=== PATIENT | male | born 1950 | race Caucasian/White ===

== ENCOUNTER → 2017-11-06 | Outpatient (CLI) | payer MEDICARE, OTHER ==
[~2017-11-06] VITALS: Ht 175.3 cm; Wt 93.0 kg
[2017-11-06] VITALS (9 sets, daily range): BP systolic 138–170; BP diastolic 65–86
[~2017-11-06] MED LIST: AMARYL1 MG PO; ASPIR 8181 M1 PO; GLIPIZIDE 10 MG10 MG PO; GLUCOPHAGE1000 MG PO; KEFLEX500 MG PO; LISINOPRIL10 MG PO; NOHOMEMEDICATIONS; NORCO 5-325 TA1 EACH PO; TOBRAMYCIN SULFA5 ML OPHTHALMIC
[2017-11-06 11:11] LABS: HEMATOCRIT 44.5 % (42.0-52.0); HEMOGLOBIN 14.5 gm/dL (14.0-18.0); MCH 28.4 pg (26.0-34.0); MCHC 32.6 g/dL (28.0-37.0); MCV 87.1 fL (80.0-100.0); MPV 9.2 fl. (7.2-11.1); RBC 5.11 mil/uL (4.50-6.00); RDW-CV 14.2 % (10.5-14.5); WBC 8.2 thou/uL (4.0-11.0)
[2017-11-06 11:20] LABS: APTT 27.6 Seconds (25.0-31.3)
[2017-11-06 11:21] LABS: ANION GAP 7 mmol/L (7-16); BUN 23 mg/dL (7-18); CALCIUM 9.1 mg/dL (8.5-10.1); CHLORIDE 103 mmol/L (98-107); CO2 31 mmol/L (21-32); CREATININE 1.3 mg/dL (0.6-1.3); GLUCOSE 240 mg/dL (70-99); POTASSIUM 4.1 mmol/L (3.5-5.1); SODIUM 141 mmol/L (136-145)
[2017-11-06 11:26] LABS: ALBUMIN 3.9 g/dL (3.4-5.0); ALKALINE PHOSPHATASE 69 U/L (46-116); CHOLESTEROL 212 mg/dL (<200); HDL CHOLESTEROL 41 mg/dL (>40); LDL CHOLESTEROL 137 mg/dL (<100); SGOT 17 U/L (15-37); SGPT 40 U/L (30-65); TC:HDL 5.2 Ratio (Not establshd); TOTAL BILIRUBIN 0.2 mg/dL (<0.1-1.0); TOTAL PROTEIN 7.8 g/dL (6.4-8.2); TRIGLYCERIDE 174 mg/dL (<150); VLDL 35 mg/dL (<40)
[2017-11-06 11:27] LABS: SERUM ASSESSMENT Clear
--- NOTE | 2017-11-07 12:43 | CARD ---
[address] [address] CARDIAC CATH REPORT Name: KAIDEN YANES Sander [id number] Admission: 11/06/17 Attend Phys: Aman Velazquez MD, Discharge: Date of : 52 Report #: [id number] THIS REPORT FOR: //name// APPROVED REPORT Study performed: 11/06/2017 15:24:06 Patient Details Patient Status: Out-Patient Room #: The patient is a 67 year-old male Event Personnel Aman Velazquez Salvage Machine Operator, Shy Neal RTR Monitor, Marc Hills (Eddie) Ector Cadena Makenzie RN category director Performed Art Access - R femoral artery* Left Heart Cath w/LT VGram [id number] LHCLV Hemostasis w/ Mynx Indication Unstable angina Risk Factors Family History, Hypercholesterolemia Procedure Narrative The patient was brought electively to the Cardiac Catheterization Laboratory and was prepped and draped in a sterile manner. The right femoral was infiltrated with 1% Lidocaine subcutaneous anesthesia. A [place] 6 FR sheath was inserted into the right femoral artery. Coronary angiography was performed using coronary diagnostic catheters. The right coronary system was accessed and visualized with a 6FR 3DRC catheter. The left coronary system was accessed and visualized with a 6FR JL4 catheter. The left ventricle was accessed and visualized with a 6FR Pigtail catheter. Left ventricular/Aortic Valve gradient assessed via catheter pullback. Left ventriculogram was performed in FIELDS projection. Pre-demployment femoral angiogram was performed . Closure device was deployed with a 6 Fr Mynx. The patient tolerated the procedure well and there were no complications associated with the procedure. Intraoperative Conscious Sedation Sedation start time: 1601 Case end Time: 1622 [place] [address] CARDIAC CATH REPORT Name: KAIDEN YANES Room: [facility]#: [id number] Admission: 11/06/17 Attend Phys: Aman Velazquez MD, Discharge: Date of : 52 Report #: [id number] Fentanyl 50 mcg Versed 2 mg Fluoro Time: 3.3 minutes Dose: DAP 53304 cGycm2 1289.8 mGy Contrast Type and Amount: Visipaque 200 ml Coronary Angiography The patient's coronary anatomy is right dominant. Diagnostic Cath Left Main 50% distal narrowing LAD Percent proximal narrowing with 90% mid LAD stenosis and diffuse 50% distal LAD narrowing Diagonal 1 60% proximal narrowing Diagonal 2 60% proximal narrowing Circumflex 90% proximal and 80% distal circumflex narrowing, this being a nondominant vessel OM1 40% proximal narrowing Right Coronary Dominant vessel with 90% proximal 80% mid and 70% distal narrowing with 50% narrowing of the proximal portion of the posterolateral branch of the distal right coronary artery Left Ventriculography The left ventricular ejection fraction is estimated to be 60%. Left ventricular wall motion abnormalities are not present. Hemodynamics The aortic pressure is 128/60 mmHg with a mean of 84 mmHg. The left ventricular pressure is 142/8 mmHg with a mean of mmHg. The left ventricular end diastolic pressure is 12 mmHg. There was no gradient across the aortic valve upon pullback. Conclusion #1 significant coronary artery disease characterized by the following: A 50% distal left main coronary artery narrowing, B 30% proximal LAD stenosis with 90% calcified mid LAD stenosis and 60% narrowing of the first and second diagonal branches, C non- dominant circumflex with 90% mid and 80% distal narrowing with 40% first marginal narrowing D dominant right coronary artery with 90% proximal and 80% [place] [address] CARDIAC CATH REPORT Name: KAIDEN YANES Room: [facility]#: [id number] Admission: 11/06/17 Attend Phys: Aman Velazquez MD, Discharge: Date of : 52 Report #: [id number] 70% distal narrowing with 50% narrowing of the proximal portion of the posterolateral branch of the distal dominant right coronary artery #2 normal left ventricular systolic function, estimated ejection fraction being 60% #3 normal left-sided hemodynamics study Recommendations Aggressive Medical Therapy CABG <ELECTRONICALLY SIGNED> By: Aman Velazquez MD, [facility] 11/07/17 1243 1243 1243Aman Velazquez MD, FACC /INF
--- NOTE | 2017-11-07 17:24 | EKG ---
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
== END | disposition home or self-care (01) ==
LOC: M.CL 10:38
PROVIDERS: Internal Medicine
DX: I25.10 Atherosclerotic heart disease of native coronary artery without angina pectoris (principal); I25.84 Coronary atherosclerosis due to calcified coronary lesion; E11.9 Type 2 diabetes mellitus without complications; E78.00 Pure hypercholesterolemia, unspecified; Z98.890 Other specified postprocedural states; Z87.442 Personal history of urinary calculi; Z79.82 Long term (current) use of aspirin; Z79.899 Other long term (current) drug therapy; Z82.49 Family history of ischemic heart disease and other diseases of the circulatory system; Z79.01 Long term (current) use of anticoagulants

== ENCOUNTER → 2018-05-31 | Outpatient (CLI) | payer MEDICARE, OTHER ==
--- NOTE | 2018-05-31 15:08 | 2DMMODE ---
[place] [address] 2 D/M-MODE ECHOCARDIOGRAM Name: KAIDEN YANES Room: [facility]#: [id number] Admission: 05/31/18 Attend Phys: Lawrence Obrien, Discharge: Date of : 52 Date of Service: 05/31/18 1508 Report #: [id number] THIS REPORT FOR: //name// APPROVED REPORT Study performed: 05/31/2018 12:27:15 EXAM: Comprehensive 2D, Doppler, and color-flow Echocardiogram Patient Location: Out-Patient Status: routine BSA: 2.06 HR: 68 bpm BP: 128/60 mmHg Other Information Study Quality: Good Indications CAD 2D Dimensions IVSd: 13.36 (7-11mm) LVOT Diam: 20.10 (18-24mm) LVDd: 40.04 mm PWd: 12.84 (7-11mm) Ascending Ao: 31.47 (22-36mm) LVDs: 24.49 (25-40mm) Aortic Root: 31.68 mm Volumes Left Atrial Volume (Systole) LA ESV Index: 22.10 mL/m2 Aortic Valve AoV Peak Pritesh.: 1.59 m/s AO Peak Gr.: 10.10 mmHg LVOT Max P.75 mmHg AO Mean Gr.: 5.90 mmHg LVOT Mean P.33 mmHg LVOT Max V: 0.83 m/s AO V2 VTI: 30.36 cm LVOT Mean V: 0.53 m/s FLACO (VTI): 1.72 cm2 LVOT V1 VTI: 16.51 cm Mitral Valve E/A Ratio: 0.91 MV Decel. Time: 203.05 ms MV E Max Pritesh.: 0.64 m/s MV PHT: 58.88 [place] [address] 2 D/M-MODE ECHOCARDIOGRAM Name: KAIDEN YANES Room: [facility]#: [id number] Admission: 05/31/18 Attend Phys: Lawrence Obrien, Discharge: Date of : 52 Date of Service: 05/31/18 1508 Report #: [id number] MVA (PHT): 3.74 cm2 TDI E/Lateral E': 8.00 E/Medial E': 9.14 Medial E' Pritesh.: 0.07 m/s Lateral E' Pritesh.: 0.08 m/s Pulmonary Valve PV Peak Rpitesh.: 0.88 m/s PV Peak Gr.: 3.12 mmHg Tricuspid Valve RAP Estimate: 5.00 mmHg TR Peak Gr.: 16.47 mmHg RVSP: 21.47 mmHg PA Pressure: 21.47 mmHg Left Ventricle The left ventricle is normal size. There is normal LV segmental wall motion. Mild concentric left ventricular hypertrophy. Left ventricular systolic function is normal. The left ventricular ejection fraction is within the normal range. LVEF is 55%. Grade I - abnormal relaxation pattern. Right Ventricle The right ventricle is normal size. The right ventricular systolic function is normal. Atria The left atrium size is normal. The right atrium size is normal. Aortic Valve Aortic valve is mildly calcified. No aortic regurgitation is present. There is no aortic valvular stenosis. Mitral Valve Mild mitral annular calcification. There is no mitral valve regurgitation noted. No evidence of mitral valve stenosis. Tricuspid Valve The tricuspid valve is normal in structure. Mild tricuspid regurgitation. Pulmonic Valve The pulmonary valve is normal in structure. There is no pulmonic [place] [address] 2 D/M-MODE ECHOCARDIOGRAM Name: KAIDEN YANES Room: [facility]#: [id number] Admission: 05/31/18 Attend Phys: Lawrence Obrien, Discharge: Date of : 52 Date of Service: 05/31/18 1508 Report #: [id number] Great Vessels The aortic root is normal in size. IVC is normal in size and collapses >50% with inspiration. Pericardium There is no pericardial effusion. <Conclusion> The left ventricle is normal size. Mild concentric left ventricular hypertrophy. Left ventricular systolic function is normal. The left ventricular ejection fraction is within the normal range. LVEF is 55%. Grade I - abnormal relaxation pattern. The right ventricle is normal size. The left atrium size is normal. Aortic valve is mildly calcified. No aortic regurgitation is present. There is no aortic valvular stenosis. Mild mitral annular calcification. There is no mitral valve regurgitation noted. No evidence of mitral valve stenosis. The tricuspid valve is normal in structure. Mild tricuspid regurgitation. IVC is normal in size and collapses >50% with inspiration. There is no pericardial effusion. There is normal LV segmental wall motion. <ELECTRONICALLY SIGNED> By: Aman Velazquez MD, FACC 05/31/18 1508 1508 1508 Aman Velazquez MD, FACC /INF
== END ==
LOC: M.CRD 12:07
DX: I07.1 Rheumatic tricuspid insufficiency (principal); I25.10 Atherosclerotic heart disease of native coronary artery without angina pectoris

== ENCOUNTER 2019-09-29 13:35 | Inpatient (IN) | payer MEDICARE, OTHER ==
[~2019-09-29] VITALS: Ht 172.7 cm; Wt 97.1 kg
[2019-09-29] VITALS (10 sets, daily range): BP systolic 116–174; BP diastolic 59–106
[2019-09-29 14:01] LABS: HEMOGLOBIN 13.4 gm/dL (14.0-18.0); NUCLEATED RBCS 0 /100WBC
[2019-09-29 14:05] LABS: HEMATOCRIT 41.9 % (42.0-52.0); MCH 29.1 pg (26.0-34.0); PLATELET COUNT* 208 thou/uL (150-400); RBC 4.61 mil/uL (4.50-6.00); RDW-CV 15.6 % (10.5-14.5); WBC 10.3 thou/uL (4.0-11.0)
[2019-09-29 14:07] LABS: CALCIUM 8.5 mg/dL (8.5-10.1); CREATININE 1.9 mg/dL (0.6-1.3)
[2019-09-29 14:19] LABS: ALBUMIN 3.3 g/dL (3.4-5.0); CK-MB MASS 1.7 ng/mL (<0.5-3.6); MAGNESIUM 2.3 mg/dL (1.8-2.4); TOTAL BILIRUBIN 0.3 mg/dL (<0.1-1.0); TOTAL PROTEIN 6.7 g/dL (6.4-8.2)
[2019-09-29 14:20] LABS: APTT 27.1 Seconds (25.0-31.3); INR 1.1
[2019-09-29 14:23] LABS: BE -23.9 mmol/L (-2 to +3); PO2 84.9 mmHg (75.0-100.0)
[2019-09-29 14:26] LABS: BE -16.8 mmol/L (-2 to +3); PO2 VENOUS 45.3 mmHg (35.0-45.0)
[2019-09-29 14:28] LABS: PCO2 58.9 mmHg (35.0-45.0)
[2019-09-29 14:28] LABS: ABSOLUTE BASOPHILS 0.1 thou/uL (0.0-0.2); ABSOLUTE EOSINOPHILS 0.1 thou/uL (0.0-0.7); ABSOLUTE LYMPHOCYTES 7.8 thou/uL (0.8-5.3); ABSOLUTE MONOCYTES 0.7 thou/uL (0.0-1.2); ABSOLUTE NEUTROPHILS 1.5 thou/uL (1.6-8.1); ATYPICAL LYMPHS 30 %
[2019-09-29 14:29] LABS: PLATELET ESTIMATE ADEQUATE
--- NOTE | 2019-09-29 16:00 | NUR ---
PT ARRIVED ON UNIT AT 1525, SEDATED ON VENT, LINES INTACT, LEVOPHED GTT, FENT/VERSED RUNNING. CODE ICE INITIATED 1600, PT GOAL TEMP REACHED 1900. CONSULTS CALLED TO DR MASON AND AROLDO. AND SON UPDATED ON POC AND HYPOTHERMIA PROTOCOL. DR BILLINGSLEY CALLED WITH ELEVATED TROPONIN-ORDERS TO NOT CALL WITH ELEVATED TROPS AND NO HEPARIN GTT NEEDED. ISABELLA COMING INTO TO SEE PT TONIGHT. REPORT GIVEN TO MAGDY NORRIS.
[2019-09-29 16:37] LABS: URINE BILIRUBIN NEGATIVE (Negative); URINE BLOOD 3+ (Negative); URINE CLARITY CLEAR; URINE COLOR YELLOW; URINE GLUCOSE-RANDOM 1+ (Negative); URINE KETONES NEGATIVE (Negative); URINE LEUKOCYTES-REFLEX NEGATIVE (Negative); URINE NITRITE-REFLEX NEGATIVE (Negative); URINE PROTEIN 1+ (Negative); URINE UROBILINOGEN 0.2 E.U./dl (0.2-1.0)
[2019-09-29 16:43] LABS: BACTERIA-REFLEX None Seen /HPF (None Seen); FINE GRANULAR CASTS 0-3 Few /LPF (None Seen); SQUAMOUS 0-3 Few /LPF (0-3); URINE CHLORIDE-RANDOM* 127 mmol/L; URINE POTASSIUM-RANDOM 24.2 mmol/L; URINE RBC >20 Many /HPF (0-2); URINE WBC-REFLEX 0-5 Rare /HPF (0-5)
[2019-09-29 16:44] LABS: CRYSTALS None Seen /LPF (None Seen)
[2019-09-29 16:56] LABS: BE -14.5 mmol/L (-2 to +3); PCO2 42.7 mmHg (35.0-45.0)
[2019-09-29 17:03] LABS: pH 7.135 (7.340-7.450)
--- NOTE | 2019-09-29 18:21 | 2DMMODE ---
[place] [address] 2 D/M-MODE ECHOCARDIOGRAM Name: KAIDEN YANES Sander Room: [address] ADM IN .R.#: [id number] Admission: 09/29/19 Attend Phys: Aram White, Discharge: Date of : 52 Date of Service: 09/29/19 1820 Report #: [id number] THIS REPORT FOR: cc: Maryjane Olsen Maggie M. DO Liston, Michael J. MD [facility] ~ APPROVED REPORT Study performed: 09/29/2019 15:45:30 EXAM: Comprehensive 2D, Doppler, and color-flow Echocardiogram Patient Location: In-Patient Room #: 004 Status: routine HR: 101 bpm BP: 132/78 mmHg Rhythm: NSR Other Information Study Quality: Good Indications Acute UT Left Ventricle The left ventricle is normal size. There is global hypokinesis of the left ventricle. There is normal left ventricular wall thickness. Left ventricular systolic function is moderate to severely decreased. LVEF is 35-40%. Right Ventricle The right ventricle is normal size. The right ventricular systolic function is normal. Atria The left atrium size is normal. The right atrium size is normal. Aortic Valve Mild aortic valve sclerosis. Mitral Valve There is mitral annular calcification. [facility] [address] [place] [address] 2 D/M-MODE ECHOCARDIOGRAM Name: KAIDEN YANES Room: [address] ADM IN M.R.#: [id number] Admission: 09/29/19 Attend Phys: Aram White, Discharge: Date of : 52 Date of Service: 09/29/191819 Report #: [id number] Tricuspid Valve The tricuspid valve is normal in structure. Pulmonic Valve Pulmonic valve is not well visualized. Great Vessels The aortic root is normal in size. Pericardium There is no pericardial effusion. <Conclusion> The left ventricle is normal size. There is normal left ventricular wall thickness. Left ventricular systolic function is moderate to severely decreased. LVEF is 35-40%. There is global hypokinesis of the left ventricle. Mild aortic valve sclerosis. There is mitral annular calcification. <ELECTRONICALLY SIGNED> By: Lawrence Obrien MD, FACC 09/29/191819 19 19 Lawrence Obrien MD, FACC /INF
[2019-09-29 18:41] LABS: ABSOLUTE MONOCYTES 1.5 thou/uL (0.0-1.2); BASOPHILS 0.1 %; EOSINOPHILS 0.1 %; HEMOGLOBIN 13.7 gm/dL (14.0-18.0); LYMPHOCYTES 9.3 %; MCH 28.6 pg (26.0-34.0); MCHC 31.9 g/dL (28.0-37.0); MCV 89.5 fL (80.0-100.0); MONOCYTES 6.9 %; MPV 10.1 fl. (7.2-11.1); NUCLEATED RBCS 0 /100WBC; PLATELET COUNT* 253 thou/uL (150-400); POLYS 83.6 %; RDW-CV 15.1 % (10.5-14.5); WBC 21.5 thou/uL (4.0-11.0)
--- NOTE | 2019-09-29 18:47 | EKG ---
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 : 1950 Requested By: Addison Allen Order Number: [id number] MD: Lawrence Obrien Measurements Intervals [place] Rate: 136 P: 111 [place]: 126 QRS: -23 QRSD: 107 T: 164 QT: 284 QTc: 428 Interpretive Statements Sinus tachycardia LVH with secondary repolarization abnormality Compared to ECG 11/06/2017 13:58:32 Left ventricular hypertrophy now present Early repolarization now present Sinus rhythm no longer present Possible ischemia no longer present Electronically Signed On 09-29-2019 18:46:45 CDT by Lawrence Obrien [email or web address] <ELECTRONICALLY SIGNED> By: Lawrence Obrien MD, FACC 09/29/19 1846 1336 1336 Lawrence Obrien MD, FACC /EPI
[2019-09-29 18:51] LABS: APTT 25.7 Seconds (25.0-31.3); INR 1.1; PROTIME 11.4 Seconds (9.20-11.50)
[2019-09-29 19:01] LABS: CALCIUM 7.4 mg/dL (8.5-10.1); CREATININE 2.2 mg/dL (0.6-1.3); MAGNESIUM 1.8 mg/dL (1.8-2.4); PHOSPHORUS* 6.7 mg/dL (2.5-4.9)
[2019-09-29 19:02] LABS: POTASSIUM 4.3 mmol/L (3.5-5.1)
[2019-09-29 19:15] LABS: BE -14.1 mmol/L (-2 to +3); PCO2 49.4 mmHg (35.0-45.0); PO2 107.1 mmHg (75.0-100.0)
[2019-09-30] VITALS (56 sets, daily range): BP systolic 81–187; BP diastolic 45–75
[2019-09-30 00:33] LABS: ABSOLUTE LYMPHOCYTES 0.4 thou/uL (0.8-5.3); ABSOLUTE MONOCYTES 0.7 thou/uL (0.0-1.2); ABSOLUTE NEUTROPHILS 14.6 thou/uL (1.6-8.1); BASOPHILS 0.1 %; HEMATOCRIT 42.3 % (42.0-52.0); HEMOGLOBIN 14.1 gm/dL (14.0-18.0); LYMPHOCYTES 2.4 %; MCH 28.9 pg (26.0-34.0); MCHC 33.3 g/dL (28.0-37.0); MCV 86.7 fL (80.0-100.0); MONOCYTES 4.4 %; MPV 9.2 fl. (7.2-11.1); NUCLEATED RBCS 0 /100WBC; PLATELET COUNT* 199 thou/uL (150-400); POLYS 93.1 %; RBC 4.88 mil/uL (4.50-6.00); RDW-CV 14.6 % (10.5-14.5); WBC 15.7 thou/uL (4.0-11.0)
[2019-09-30 00:56] LABS: ANION GAP 13 mmol/L (7-16); BUN 43 mg/dL (7-18); CALCIUM 7.4 mg/dL (8.5-10.1); CHLORIDE 108 mmol/L (98-107); CHOLESTEROL 150 mg/dL (<200); CK-MB MASS 103.8 ng/mL (<0.5-3.6); CO2 24 mmol/L (21-32); CREATININE 2.5 mg/dL (0.6-1.3); GLUCOSE 231 mg/dL (70-99); HDL CHOLESTEROL 42 mg/dL (>40); LDL CHOLESTEROL 92 mg/dL (<100); MAGNESIUM 1.8 mg/dL (1.8-2.4); NT-PRO BRAIN NAT PEPTIDE 2744 pg/mL (<300); PHOSPHORUS* 3.7 mg/dL (2.5-4.9); POTASSIUM 3.9 mmol/L (3.5-5.1); SODIUM 145 mmol/L (136-145); TC:HDL 3.6 Ratio (Not establshd); TRIGLYCERIDE 82 mg/dL (<150); VLDL 16 mg/dL (<40)
[2019-09-30 01:02] LABS: SERUM ASSESSMENT CLEAR; TROPONIN-I LEVEL 12.12 ng/mL (<0.06)
[2019-09-30 01:13] LABS: BE -9.1 mmol/L (-2 to +3)
--- NOTE | 2019-09-30 04:30 | NUR ---
insulin gtt turned off at this time
--- NOTE | 2019-09-30 05:17 | NUR ---
PT. REMAINS COOL, REWARMING TO START AT 1600. BP REMAINS WITH A MAP > 65, WITHOUT PRESSORS. PT. HAS OPENED HIS EYES TO STIMULI. VECURONIUM IV PUSHES GIVEN PRN PER SHIVERING. CVP LOW, CONCERN OF VOLUME OVERLOAD SO IVF DC'D AND NO BOLUS GIVEN PER DR. MASON. SINUS RHYTHM WITH PACS AND PVCS MAJORITY OF SHIFT. PT'S UPDATED ON PT'S STATUS. WILL CONTINUE TO MONITOR.
[2019-09-30 05:46] LABS: BE -6.8 mmol/L (-2 to +3); PCO2 46.6 mmHg (35.0-45.0)
[2019-09-30 05:48] LABS: PO2 137.5 mmHg (75.0-100.0); pH 7.257 (7.340-7.450)
[2019-09-30 06:23] LABS: ABSOLUTE LYMPHOCYTES 0.3 thou/uL (0.8-5.3); BASOPHILS 0.1 %; HEMATOCRIT 41.9 % (42.0-52.0); HEMOGLOBIN 13.6 gm/dL (14.0-18.0); LYMPHOCYTES 2.2 %; MCH 28.1 pg (26.0-34.0); MCHC 32.4 g/dL (28.0-37.0); MCV 86.8 fL (80.0-100.0); MONOCYTES 6.9 %; MPV 9.3 fl. (7.2-11.1); NUCLEATED RBCS 0 /100WBC; PLATELET COUNT* 181 thou/uL (150-400); POLYS 90.8 %; RBC 4.83 mil/uL (4.50-6.00); RDW-CV 14.8 % (10.5-14.5); WBC 14.3 thou/uL (4.0-11.0)
[2019-09-30 06:46] LABS: CALCIUM 7.7 mg/dL (8.5-10.1); CK-MB MASS 139.1 ng/mL (<0.5-3.6); CREATININE 2.3 mg/dL (0.6-1.3); MAGNESIUM 1.8 mg/dL (1.8-2.4); PHOSPHORUS* 3.8 mg/dL (2.5-4.9); POTASSIUM 4.2 mmol/L (3.5-5.1)
[2019-09-30 06:47] LABS: TROPONIN-I LEVEL 20.02 ng/mL (<0.06)
[2019-09-30 06:56] LABS: APTT 28.1 Seconds (25.0-31.3); INR 1.1; PROTIME 11.6 Seconds (9.20-11.50)
--- NOTE | 2019-09-30 12:10 | NUR ---
ICU rounds: On vent. Code ice, start rewarming at 4pm today. CM spoke with and kids in waiting room. Pt is normally active and independent, Pt was at the gym when this event happened. Pt works out 5 days/week. Hx of open heart surgery and diabetes. No DME. No hx of HH or SNF. Family hopeful that Pt will be able to return at dc, CM provided contacted info to family. Following.
--- NOTE | 2019-09-30 14:01 | NUR ---
Nutrition: Screen for Juan Antonio score of 9. Pt code ice, will sart rewarming at 1600, per notes. Defer nutrition needs until after rewarmed. Will follow up [place] 10/03/19.
--- NOTE | 2019-09-30 15:03 | NUR ---
PATIENT REMAINS ON VENT SEDATED LEVOPHED USED DO TO NEED FOR PROPOFOL TO INCREASE SEDATION. vECURONIIUM USED PRN. FAMILYAT BEDSIDE INFORMED OF TX AND PT CONDITION, PROGRESSING SLOWLY.
--- NOTE | 2019-09-30 16:31 | NUR ---
PATIENT NOW STARTING WARMING PROCESS. FAMILY AT BEDSIDE.
--- NOTE | 2019-09-30 17:46 | CON ---
[address] [address] CONSULTATION Name: KAIDEN YANES Sander Room: [address] IN M.R.#: [id number] Admission: 09/29/19 Attend Phys: Aram White MD Discharge: Date of : 52 Report #: [id number] THIS REPORT FOR: //name// cc: Maryjane Olsen Maggie M. DO ~ THIS REPORT FOR: //name// CC: Aram Bravo Camille DATE OF SERVICE: 09/29/2019 CONSULTING PHYSICIAN: Aram White MD REASON FOR CONSULTATION: Acute kidney injury. HISTORY OF PRESENT ILLNESS: A 69-year-old gentleman who was at the gym and had a sudden syncopal event, was unresponsive. CPR was initiated. It sounds like he was shocked several times and came out of the ventricular arrhythmia. He is intubated. He is currently on Levophed 5 mcg. He was very acidotic initially with a pH of just less than 7 and a lactic acid of 10. He was given Lasix for some pulmonary edema noted on chest x-ray and transferred to the ICU. He has a Edward catheter in place, he is making urine and is on 5 mcg of Levophed at present time. REVIEW OF SYSTEMS: Constitutional, psych, heme, eyes, ENT, respiratory, cardiac, GI, , endocrine, all negative except as documented above. PAST MEDICAL HISTORY: Coronary artery disease, CABG; history of diabetes; carotid disease with previous surgery. CURRENT MEDICATIONS: Reviewed. SOCIAL HISTORY: No tobacco. FAMILY HISTORY: Not pertinent to current clinical case. PHYSICAL EXAMINATION: VITAL SIGNS: Blood pressure 116/68, pulse 105, respirations 26, temperature 35.8. GENERAL: Intubated and sedated. EYES: Closed. EARS: Externally normal. CARDIOVASCULAR: Tachycardic. LUNGS: [place] [address] CONSULTATION Name: KAIDEN YANES Room: [address]#: [id number] Admission: 09/29/19 Attend Phys: Aram White MD Discharge: Date of : 52 Report #: [id number] ABDOMEN: Soft. GENITOURINARY: Edward catheter in place. MUSCULOSKELETAL: Nontender. PSYCHIATRIC: Intubated and sedated. LABORATORY DATA: The pH 7.14, pCO2 of 43, bicarbonate 14. UA noted. White cell count 10.3, hemoglobin 13.4, platelets 208. Sodium 143, potassium 3, chloride 105, bicarbonate 19, BUN 33, creatinine 1.9, glucose 332, lactic acid 10, calcium 8.5, phosphorus 6, magnesium 2.3, albumin 3.3, lipase 173. ASSESSMENT: 1. Acute kidney injury with an admission creatinine of 1.9. UA is noted. This is in the setting of cardiac arrest and shock. In 10/2017, creatinine was 1.3. 2. Hypokalemia. 3. Respiratory and lactic metabolic acidosis. 4. Cardiac arrest. 5. Coronary artery disease with history of coronary artery bypass graft. 6. Pulmonary edema on chest x-ray. 7. Shock. 8. History of diabetes. PLAN: 1. Lasix was given. He has a Edward catheter in place. He is making good urine. 2. I discussed with ICU nurse and asked for repeat chemistries. Blood gases are being repeated and thus far improving, currently on Levophed. 3. He is on hypothermia protocol and electrolytes will be replaced as needed. Cardiology has been consulted. We will follow along with you. Thirty-five minutes critical care time. Thank you for requesting my opinion in the care and management of this patient. <ELECTRONICALLY SIGNED> By: Reece Duran MD 09/30/19 1746 1710 0108Abijose Duran MD /nt
[2019-09-30 18:32] LABS: ABSOLUTE LYMPHOCYTES 0.6 thou/uL (0.8-5.3); ABSOLUTE NEUTROPHILS 21.9 thou/uL (1.6-8.1); BASOPHILS 0.2 %; HEMATOCRIT 41.3 % (42.0-52.0); HEMOGLOBIN 13.5 gm/dL (14.0-18.0); LYMPHOCYTES 2.7 %; MCH 28.3 pg (26.0-34.0); MCHC 32.7 g/dL (28.0-37.0); MCV 86.6 fL (80.0-100.0); MONOCYTES 4.4 %; MPV 9.5 fl. (7.2-11.1); NUCLEATED RBCS 0 /100WBC; PLATELET COUNT* 212 thou/uL (150-400); POLYS 92.7 %; RBC 4.77 mil/uL (4.50-6.00); RDW-CV 14.8 % (10.5-14.5); WBC 23.6 thou/uL (4.0-11.0)
[2019-09-30 18:50] LABS: APTT 29.6 Seconds (25.0-31.3); INR 1.1; PROTIME 11.4 Seconds (9.20-11.50)
[2019-09-30 18:57] LABS: CALCIUM 7.7 mg/dL (8.5-10.1); CREATININE 2.6 mg/dL (0.6-1.3); MAGNESIUM 1.6 mg/dL (1.8-2.4); PHOSPHORUS* 4.2 mg/dL (2.5-4.9)
[2019-09-30 18:58] LABS: POTASSIUM 5.3 mmol/L (3.5-5.1)
--- NOTE | 2019-09-30 22:29 | NUR ---
RECEIVED REPORT AND ASSUMED CARE AT 1900.VSS. PT ON LEVO/ FENT/PROP GTT. NO S/S OF SHIVERING OR SEIZURES. PT REWARMING, STARTED 1600 09/30/19 PER REPORT. ASSESSMENT COMPLETED CHARTED. BED LOCKED IN LOWEST POSITION.
--- NOTE | 2019-09-30 22:31 | NUR ---
AT 2200 ORAL CARE, PT OPENED EYES, ABLE TO NOD IN "YES" RESPOSE TO QUESTIONS. OPENED AND CLOSED EYES WITH COMMAND AND ABLE TO FOLLOW COMMANDS TO SQUEEZE HANDS BILATERAL WHEN DIRECTED.
[2019-09-30 23:07] LABS: GLYCOHEMOGLOBIN (HGB A1C) 7.2 % (4.8-5.6)
[2019-10-01] VITALS (35 sets, daily range): BP systolic 60–137; BP diastolic 36–74
[2019-10-01 00:23] LABS: HEMATOCRIT 40.1 % (42.0-52.0); HEMOGLOBIN 13.1 gm/dL (14.0-18.0); MCH 28.4 pg (26.0-34.0); MCHC 32.7 g/dL (28.0-37.0); MCV 86.8 fL (80.0-100.0); MPV 9.3 fl. (7.2-11.1); RBC 4.62 mil/uL (4.50-6.00); RDW-CV 14.7 % (10.5-14.5); WBC 24.1 thou/uL (4.0-11.0)
[2019-10-01 00:53] LABS: APTT 29.8 Seconds (25.0-31.3); INR 1.1; PROTIME 11.7 Seconds (9.20-11.50)
[2019-10-01 00:58] LABS: ALBUMIN 3.1 g/dL (3.4-5.0); CALCIUM 7.3 mg/dL (8.5-10.1); CREATININE 2.7 mg/dL (0.6-1.3); MAGNESIUM 1.6 mg/dL (1.8-2.4); POTASSIUM 5.6 mmol/L (3.5-5.1); TOTAL BILIRUBIN 0.3 mg/dL (<0.1-1.0); TOTAL PROTEIN 6.6 g/dL (6.4-8.2)
[2019-10-01 05:51] LABS: BE -5.3 mmol/L (-2 to +3); PCO2 45.4 mmHg (35.0-45.0); PO2 121.3 mmHg (75.0-100.0)
[2019-10-01 05:53] LABS: pH 7.289 (7.340-7.450)
--- NOTE | 2019-10-01 06:54 | NUR ---
TEMP AT 0000 ACHIEVED 97.7 END OF REWARMING/ MAX OF 98.4 THROUGH SHIFT.
[2019-10-01 09:26] LABS: BE -4.7 mmol/L (-2 to +3); PCO2 43.9 mmHg (35.0-45.0); PO2 94.5 mmHg (75.0-100.0); pH 7.308 (7.340-7.450)
--- NOTE | 2019-10-01 10:16 | NUR ---
PT EXTUBATED AT 1010. BIPAP PLACED BY RESP THERAPIST
[2019-10-01 13:06] LABS: CALCIUM 7.6 mg/dL (8.5-10.1); CREATININE 3.2 mg/dL (0.6-1.3)
--- NOTE | 2019-10-01 17:52 | NUR ---
PT A/OX4. CONFUSED AT TIMES ABOUT EVENTS THAT GOT HIM HERE. O2 2L NC. LOPEZ CATHETER REMOVED. REPORTS CHEST PAIN 09/26. DENIES NEED FOR PAIN MEDICATION. UP TO CHAIR TODAY. PROGRESSING WELL TOWARDS GOALS.
--- NOTE | 2019-10-02 03:59 | NUR ---
RECEIVED REPORT AND ASSUMED CARE OF THE PATIENT AT 1900. VSS. FULL ASSESSMENT COMPLETED CHARTED. BED LOCKED AND IN LOW POSITION. PERSONAL ITEMS IN REACH.
[2019-10-02 04:00] VITALS: BP 154/79
[2019-10-02 08:00] VITALS: BP 157/79
[2019-10-02 13:25] VITALS: BP 184/95
--- NOTE | 2019-10-02 17:16 | NUR ---
PATIENT HAVING BURPS NITRO APPLIED. CALLED 30 PLUS BEATS OF WIDE COMPLEX TACHYCARDIA. CALLED TO DR KENDRICK POSSIBLE CATH IN AM FAMILY AWARE. PT STILL SLOW TO RESPOND. UP TO VOID IN COMMODE TO TRANSFER TO RM 215,.
--- NOTE | 2019-10-02 19:55 | NUR ---
TRANSFERED PT TO RM 215 GAVE REPORT TO MYRNA CURRAN. PT DENIES SOA OR DISTRESS.
[2019-10-03] VITALS (7 sets, daily range): BP systolic 154–185; BP diastolic 78–93
[2019-10-03 06:43] LABS: CALCIUM 8.4 mg/dL (8.5-10.1); CREATININE 2.7 mg/dL (0.6-1.3); POTASSIUM 4.6 mmol/L (3.5-5.1)
--- NOTE | 2019-10-03 07:40 | NUR ---
RECEIVED REPORT FROM CECELIA CURRAN AT 1900. PATIENT UP FROM ICU AT THAT TIME. PATIENT HAS RESTED IN BED AND BEEN COMPLIANT WITH TREATMENT. CALLS OUT FOR ASSISTANCE WHEN HE NEEDS TO VOID, TAKES PILLS WITHOUT DIFFICULTY. 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 DATE AND TIME NOT DETERMINED OF YET. NO SIGNIFICANT EVENTS OR COMPLICATIONS THIS SHIFT. NURSING STAFF KALEY
--- NOTE | 2019-10-03 09:10 | EKG ---
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 : 1950 Requested By: Lawrence Obrien Order Number: [id number] Reading MD: Mitul Hollingsworth Measurements Intervals [place] Rate: 108 P: 68 IN: 160 QRS: 2 QRSD: 95 T: 141 QT: 313 QTc: 420 Interpretive Statements Sinus tachycardia Repol abnrm, severe global ischemia (LM/MVD) Compared to ECG 09/29/2019 13:36:11 rat has slowed Left ventricular hypertrophy no longer present Electronically Signed On 10-03-2019 9:08:55 CDT by Mitul Hollingsworth [email or web address] <ELECTRONICALLY SIGNED> By: Mitul Hollingsworth MD, [facility] 10/03/19 0908 0622 1 Mitul Hollingsworth MD, [facility] /EPI
--- NOTE | 2019-10-03 10:50 | NUR ---
Nutrition: reassessment. Pt eating CHO controlled diet. BG 138, albumin 3.1. Wt: 214#. Pt doing much better. Low nutrition risk.
--- NOTE | 2019-10-03 15:29 | NUR ---
ASSUMED CARE OF PT AT 0730. PT RESTING AT EDGE OF BED WAITING FOR BREAKFAST. AND SON AT BEDSIDE AND UPDATED ON CURRENT PLAN OF CARE. TRACING SR ON THE BUSINESS SERVICES ANALYST. ON 2L NC SAT UPPER 90'S. PT DENIES ANY PAIN OR SHORTNESS OF BREATH. PT UP WITH SBA TO BATHROOM. PT GOAL FOR TODAY IS WORK WITH PT AND OT, TITRATE OXYGEN AND CARDIO CONSULT IN PLACE. AM ASSESSMENT CHARTED. MEDICATIONS PER MAR. PT REPOSITIONS SELF. HOURLY ROUNDING OBSERVED. BED IN LOW POSITION. CALL LIGHT WITHIN REACH. WILL CONTNUE PLAN OF CARE.
--- NOTE | 2019-10-03 18:36 | NUR ---
NO ACUTE CHANGES THROUGHOUT SHIFT. REFER TO CHARTING. PT UP TO BATHROOM MULTIPLE TIMES THROUGHOUT SHIFT WITH SBA. FAMILY REMAINED AT BEDSIDE THROUGHOUT SHIFT AND UPDATED ON CURRENT PLAN OF CARE. CONTINUES TO TRACE SR ON THE NEW CAR GET READY MECHANIC. ON 2L NC SAT UPPER 90'S. PT DENIES ANY PAIN THIS AFTERNOON. MEDICATIONS PER SEP. PT REPOSITIONS SELF. HOURLY ROUNDING OBSERVED. BED IN LOW POSITION. CALL LIGHT WITHIN REACH. WILL CONTINUE PLAN OF CARE.
[2019-10-04] VITALS (7 sets, daily range): BP systolic 120–179; BP diastolic 62–94
[2019-10-04 06:18] LABS: CALCIUM 8.4 mg/dL (8.5-10.1); CREATININE 2.5 mg/dL (0.6-1.3); POTASSIUM 4.7 mmol/L (3.5-5.1)
--- NOTE | 2019-10-04 07:53 | NUR ---
Shift uneventful. Pt is aox4, running SR w/ PVCs on telemetry, respirations are even and unlabored on room air. Pt is medically stable at this time.
--- NOTE | 2019-10-04 16:47 | NUR ---
PT UP IN HALLS WITH STEADY GAIT. NSR ON MONITOR. PT DENIES CP OR SOA. TOLERATING PO WELL. PLAN FOR HEART CATH WHEN KIDNEY FUNCTION IMPROVES
[2019-10-05] VITALS: BP 153/81
[2019-10-05 04:00] VITALS: BP 157/78
[2019-10-05 04:14] LABS: ABSOLUTE BASOPHILS 0.1 thou/uL (0.0-0.2); ABSOLUTE EOSINOPHILS 0.6 thou/uL (0.0-0.7); ABSOLUTE LYMPHOCYTES 2.1 thou/uL (0.8-5.3); ABSOLUTE NEUTROPHILS 5.7 thou/uL (1.6-8.1); BASOPHILS 0.9 %; EOSINOPHILS 6.3 %; HEMATOCRIT 35.1 % (42.0-52.0); HEMOGLOBIN 11.9 gm/dL (14.0-18.0); LYMPHOCYTES 22.5 %; MCHC 33.9 g/dL (28.0-37.0); MCV 85.5 fL (80.0-100.0); MONOCYTES 10.2 %; NUCLEATED RBCS 0 /100WBC; PLATELET COUNT* 183 thou/uL (150-400); POLYS 60.1 %; RDW-CV 14.2 % (10.5-14.5); WBC 9.4 thou/uL (4.0-11.0)
[2019-10-05 04:47] LABS: CALCIUM 8.7 mg/dL (8.5-10.1); CREATININE 2.3 mg/dL (0.6-1.3); POTASSIUM 4.1 mmol/L (3.5-5.1)
--- NOTE | 2019-10-05 07:56 | NUR ---
Shift uneventful. Pt is aox4, running SR w/ PACs on telemetry, respirations are even and unlabored on room air. Pt is medically stable at this time.
[2019-10-05 08:00] VITALS: BP 153/76
[2019-10-05 13:04] VITALS: BP 137/70
[2019-10-05 17:21] VITALS: BP 146/70
[2019-10-05 20:00] VITALS: BP 164/78
[2019-10-06 00:09] VITALS: BP 128/62
[2019-10-06 04:04] VITALS: BP 148/65
[2019-10-06 04:36] LABS: ABSOLUTE BASOPHILS 0.1 thou/uL (0.0-0.2); ABSOLUTE EOSINOPHILS 0.5 thou/uL (0.0-0.7); ABSOLUTE LYMPHOCYTES 1.7 thou/uL (0.8-5.3); ABSOLUTE NEUTROPHILS 5.9 thou/uL (1.6-8.1); BASOPHILS 0.7 %; EOSINOPHILS 5.7 %; HEMATOCRIT 34.1 % (42.0-52.0); HEMOGLOBIN 11.7 gm/dL (14.0-18.0); LYMPHOCYTES 18.4 %; MCH 29.4 pg (26.0-34.0); MCHC 34.3 g/dL (28.0-37.0); MCV 85.9 fL (80.0-100.0); MONOCYTES 11.4 %; MPV 9.7 fl. (7.2-11.1); NUCLEATED RBCS 0 /100WBC; PLATELET COUNT* 179 thou/uL (150-400); POLYS 63.8 %; RBC 3.97 mil/uL (4.50-6.00); RDW-CV 14.5 % (10.5-14.5); WBC 9.2 thou/uL (4.0-11.0)
[2019-10-06 04:43] LABS: CALCIUM 8.3 mg/dL (8.5-10.1); CREATININE 2.2 mg/dL (0.6-1.3); POTASSIUM 4.2 mmol/L (3.5-5.1)
--- NOTE | 2019-10-06 06:51 | NUR ---
Shift uneventful. Pt's creat remains elevated at 2.2. Pt is aox4, running SR w/ PACs on telemetry, respirations are even and unlabored on room air. Pt is medically stable at this time.
--- NOTE | 2019-10-06 07:10 | NUR ---
CHANGE OF SHIFT, BEDSIDE REPORT GIVEN PATIENT IN THE SHOWER AT THIS TIME ASSUMED PATIENT CARE
[2019-10-06 07:45] VITALS: BP 169/91
--- NOTE | 2019-10-06 08:14 | NUR ---
THIS P.T. CONSULTED WITH TREATING BLOWER ROOM ATTENDANT FROM LAST TX SESSION. PT HAS DEMONSTRATED FUNCTIONAL INDEPENDENCE AND NO BARRIERS OR SAFETY CONCERNS PRESENTED FOR DC. ALL GOALS HAVE BEEN MET, AND NO FURTHER P.T. NEEDS PRESENTED AT THIS TIME. WILL DC P.T. FUNMI DIORT
[2019-10-06 12:06] VITALS: BP 123/59
[2019-10-06 18:02] VITALS: BP 151/66
[2019-10-06 20:00] VITALS: BP 141/73
--- NOTE | 2019-10-06 20:00 | NUR ---
RECEIVED REPORT AND ASSUMED CARE OF PT, ASSESSMENT COMPLETED. GAIT STEADY AROUND ROOM. DISCUSSED CARDIAC CATH AND NPO STATUS. TELEMETRY ON SHOWING SR. WILL CONT TO MONITOR AND ASSIST NEEDED.
[2019-10-07] VITALS (14 sets, daily range): BP systolic 114–161; BP diastolic 60–79
[2019-10-07 04:18] LABS: ABSOLUTE EOSINOPHILS 0.5 thou/uL (0.0-0.7); ABSOLUTE LYMPHOCYTES 1.5 thou/uL (0.8-5.3); ABSOLUTE MONOCYTES 0.9 thou/uL (0.0-1.2); ABSOLUTE NEUTROPHILS 5.8 thou/uL (1.6-8.1); BASOPHILS 0.5 %; EOSINOPHILS 5.9 %; HEMATOCRIT 34.4 % (42.0-52.0); HEMOGLOBIN 11.7 gm/dL (14.0-18.0); MCH 29.2 pg (26.0-34.0); MCHC 33.9 g/dL (28.0-37.0); MCV 86.2 fL (80.0-100.0); MONOCYTES 10.6 %; MPV 9.8 fl. (7.2-11.1); NUCLEATED RBCS 0 /100WBC; PLATELET COUNT* 179 thou/uL (150-400); RBC 3.99 mil/uL (4.50-6.00); RDW-CV 14.5 % (10.5-14.5); WBC 8.8 thou/uL (4.0-11.0)
[2019-10-07 04:30] LABS: ALBUMIN 3.2 g/dL (3.4-5.0); CALCIUM 8.3 mg/dL (8.5-10.1); CREATININE 2.3 mg/dL (0.6-1.3); POTASSIUM 4.1 mmol/L (3.5-5.1); TOTAL BILIRUBIN 0.4 mg/dL (<0.1-1.0); TOTAL PROTEIN 6.6 g/dL (6.4-8.2)
--- NOTE | 2019-10-07 06:00 | NUR ---
SLEPT WELL TONIGHT. NPO FOR CARDIAC CATH. PT'S CREAT 2.3 THIS AM. EXPLAINED THIS TO PT AND BECAME DEPRESSED. TELEMETRY SHOWING SR. NO CHANGE IN ASSESSMENT. HS GOALS OF REST AND SAFETY ACHIEVED. HOURLY ROUNDING OBSERVED.
--- NOTE | 2019-10-07 13:43 | EKG ---
[place] [address] ELECTROCARDIOGRAM REPORT Name: KAIDEN YANES Room: [address] ADM IN M.R.#: [id number] Admission: 09/29/19 Attend Phys: Aram White, Discharge: Date of : 52 Date of Service: 10/07/19 1301 Report #: [id number] THIS REPORT FOR: //name// [facility] Test Date: 2019-10-07 Test Time: 13:01:41 Pat Name: KAIDEN CHENRIDGE Department: Room: [address] Gender: M Clinical Assoc: JOSAFAT : 1950 Requested By: Mitul Hollingsworth Order Number: [id number] Reading MD: Mitul Hollingsworth Measurements Intervals [place] Rate: 67 P: 8 NH: 146 QRS: 2 QRSD: 100 T: 123 QT: 414 QTc: 437 Interpretive Statements Sinus rhythm Left atrial enlargement LVH with secondary repolarization abnormality Compared to ECG 10/02/2019 06:22:33 Left ventricular hypertrophy now present Sinus tachycardia no longer present Possible ischemia no longer present Electronically Signed On 10-07-2019 13:41:47 CDT by Mitul Hollingsworth [email or web address] <ELECTRONICALLY SIGNED> By: Mitul Hollingsworth MD, FAC 10/07/19 1341 1301 1301 Mitul Hollingsworth MD, FAC /EPI
--- NOTE | 2019-10-07 14:18 | CARD ---
[address] [address] CARDIAC CATH REPORT Name: KAIDEN YANES Room: [address] IN [facility]#: [id number] Admission: 09/29/19 Attend Phys: Aram White MD Discharge: Date of : 52 Report #: [id number] THIS REPORT FOR: //name// cc: Maryjane Olsen Maggie M. DO ~ APPROVED REPORT Study performed: 10/07/2019 08:03:14 Patient Details Patient Status: In-Patient Room #: The patient is a 69 year-old male Event Personnel Mitul Hollingsworth Contact Assembler, Aram Alvarado Monitor, Joanne Ardon RTR Scrub, Arlette Harris RN RN, Michaela Ceballos RN RN, Mitul Hollingsworth Floriculture Teacher Procedures Performed Right femoral artery access, Left Heart Catheterization, CASS SINGLE RPLA, Hemostasis with Angioseal Indication Non-STEMI , Syncope, Cardiomyopathy Risk Factors Hypercholesterolemia, Coronary Artery DiseaseHypertensionRenal Failure, Diabetes Previous Procedures/Diagnoses Previous CABG Admission/Lab Medications/Medications given during procedure Glycoprotein IllbIlla Inhibitors, Heparin Unfract., Heparin IV bolus 9000 units, Aggrastat bolus IV 9 ml, Plavix PO 600 mg Procedure Narrative The patient was brought electively to the Cardiac Catheterization Laboratory and was prepped and draped in a sterile manner. The right femoral was infiltrated with 2% Lidocaine subcutaneous anesthesia. A [place] 6 FR sheath was inserted into the right femoral artery. Coronary angiography was performed using coronary diagnostic catheters. The right coronary system was accessed and visualized with a Diagnostic - JR4 catheter. The left [place] [address] CARDIAC CATH REPORT Name: KAIDEN YANES Room: [address]#: [id number] Admission: 09/29/19 Attend Phys: Aram White MD Discharge: Date of : 52 Report #: [id number] and visualized with a Diagnostic - JL4 catheter. The left ventricle was accessed and visualized with a Diagnostic - JR4 - PRESSURES ONLY catheter. Left ventricular/Aortic Valve gradient assessed via catheter pullback. Pre-demployment femoral angiogram was performed . Closure device was deployed with a 6 Fr Angioseal STS 6Fr. The patient tolerated the procedure well and there were no complications associated with the procedure. There was no hematoma. COVARRUBIAS graft was cannulated with a 6 micronesian COVARRUBIAS catheter. 2 SVG's were cannulated with a 6 fr JR4 catheter. Intraoperative Conscious Sedation Sedation start time: 1059 Case end Time: 1204 Fentanyl 25 mcg Versed 4 mg Fluoro Time: 16.0 minutes Dose: DAP 980170 cGycm2 2777 mGy Contrast Type and Amount: Visipaque 170 ml Coronary Angiography The patient's coronary anatomy is right dominant. [place] Artery Percent Stenosis Grafts (Complete if Previous CABG=Yes: Percent Stenosis) patent covarrubias to the mid lad, although the apical lad had a 80% stenosis. Patent SVG to a small diagonal branch, althougth the sequential svg to the marginal branch appearred chronically occluded. Patent SVG to the posterolateral branch of the rca, although the lisandro branch had a 80% stenosis beyond the insertion of the SVG. Diagnostic Cath Left Main 30% distal stenosis LAD mid 100% chronic occlusion Circumflex small vessel giving of a medium sized marginal branch and had a proximal 90% stenosis Right Coronary 80% proximal, 90% mid stenosis, and 90% distal stenosis noted RPLV 80% proximal stenosis Ramus small vessel with 90% mid stenosis noted Left Ventriculography Left Ventriculography was not performed. Hemodynamics The aortic pressure is 133/63 mmHg with a mean of 90 [place] [address] CARDIAC CATH REPORT Name: KAIDEN YANES Room: [address]#: [id number] Admission: 09/29/19 Attend Phys: Aram White MD Discharge: Date of : 52 Report #: [id number] ventricular pressure is 137/10 mmHg with a mean of mmHg. The left ventricular end diastolic pressure is 18 mmHg. There was no gradient across the aortic valve upon pullback. Pullback from the left ventricle to the aorta revealed no gradient across the aortic valve. PCI Technique Lesion Anticoagulation was achieved with Heparin. bolus of iv aggrastat given Percutaneous coronary intervention was performed on the proximal circumflex artery segment. The lesion stenosis prior to intervention was 90% with BELLA 3 flow. A 6FR XB 3.5 100CM Guide Catheter was used to engage the lm ostium. BALLOON DILATION Unable to wire the nondominant circumflex artery because of unusual angle from the left main artery despite using both BMW and prowater flex guidewires. Because of the small size of the circumflex, it was decided to abandoned further efforts at PTCA because of contrast load and renal insufficiency Final angiography reveals 90 % stenosis with BELLA 3 flow. COMMENTS UNABLE TO WIRE THE CIRCUMFLEX PCI Technique Lesion 2 Percutaneous Coronary Intervention was performed on the third right posterior lateral segment. Percutaneous coronary intervention was performed on the third right posterior lateral segment. The lesion stenosis prior to intervention was 80% with BELLA 3 flow. A 6F MPA 1 Guide Catheter was used to engage the svg ostium. A IG: BMW 190cm Interventional Guidewire was used to cross the lesion. Balloon Dilation A Balloon catheter Mini Trek RX 2.0 X 12 was inserted and inflated up to 12.00atm for 13seconds. Repeat angiography revealed the following post-dilatation results: 60% stenosis. Additional Inflation: 14.00atm for 16seconds. Stent Deployment A drug-eluting stent Davonte RX Stent 2.91T54ns was inserted and inflated up to 10.00atm for 16seconds. Repeat angiography revealed the following post-stent deployment results: 0% stenosis. Additional Inflation: 18.00atm for 13seconds. Additional Inflation: 19.00atm for 13seconds. [address] [address] CARDIAC CATH REPORT Name: KAIDEN YANES Room: [address] IN M.R.#: [id number] Admission: 09/29/19 Attend Phys: Aram White MD Discharge: Date of : 52 Report #: [id number] Final angiography reveals 0 % stenosis with BELLA 3 flow. Conclusion 1. chronic occlusion of the mid lad which filled by a patent COVARRUBIAS graft, although the apical lad had a 80% stenosis. 2. 90% stenosis of a small nondominant circumflex artery. 3. 80% proximal, 90% mid, and 90% stenosis of the rca 4. Patent COVARRUBIAS graft to the lad 5. Patent SVG to a small diagonal artery, although the sequential jump graft to the marginal artery appearred chronically occluded 6. Patent SVG to the posterolateral branch of the RCA, although a 80% stenosis was noted beyond the insertion of the SVG 7. unable to cross a guide wire beyond the stenosis in the proximal circumflex artery because of its abnormal takeoff from the left main 8. successful placement of a drug eluting stent in the distal posterolateral branch beyond the SVG Recommendations consider ICD placement Medications Administered Clopidogrel <ELECTRONICALLY SIGNED> By: Mitul Hollingsworth MD, FACC 10/07/19 1416 1416 1416Davijose Hollingsworth MD, FACC /INF
--- NOTE | 2019-10-07 16:12 | NUR ---
ASSUMED PT CARE AT 0800, AOX4, UP AD DONTA, O2 SAT 90'S RA. TRACING SR ON TELE. PT DENIES PAIN. PT HAD HEART CATH, R GROIN SITE C/D/I. IVF INFUSSING ORDERED. VSS, AM ASSESSMENT CHARTED, MEDS GIVEN PER SEP. BEDREST UNTIL 190. WILL CONTIUE TO MONITOR.
[2019-10-08] VITALS: BP 156/77
[2019-10-08 04:00] VITALS: BP 164/71
[2019-10-08 05:48] LABS: ABSOLUTE EOSINOPHILS 0.4 thou/uL (0.0-0.7); ABSOLUTE LYMPHOCYTES 1.3 thou/uL (0.8-5.3); BASOPHILS 0.5 %; HEMATOCRIT 32.9 % (42.0-52.0); LYMPHOCYTES 13.8 %; MCH 29.2 pg (26.0-34.0); MCHC 33.5 g/dL (28.0-37.0); NUCLEATED RBCS 0 /100WBC; PLATELET COUNT* 184 thou/uL (150-400); POLYS 71.7 %; RBC 3.79 mil/uL (4.50-6.00); RDW-CV 14.9 % (10.5-14.5); WBC 9.7 thou/uL (4.0-11.0)
[2019-10-08 06:04] LABS: CALCIUM 7.9 mg/dL (8.5-10.1); CREATININE 2.3 mg/dL (0.6-1.3); POTASSIUM 4.1 mmol/L (3.5-5.1); TOTAL BILIRUBIN 0.4 mg/dL (<0.1-1.0); TOTAL PROTEIN 5.9 g/dL (6.4-8.2)
[2019-10-08 08:00] VITALS: BP 154/69
[2019-10-08 12:00] VITALS: BP 133/63
--- NOTE | 2019-10-08 14:22 | EKG ---
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 Transformer Assembler: DEVANTE : 1950 Requested By: Mitul Hollingsworth Order Number: [id number] Reading MD: Blaine Lemus Measurements Intervals [place] Rate: 74 P: 31 CT: 147 QRS: 9 QRSD: 93 T: 134 QT: 380 QTc: 422 Interpretive Statements Sinus rhythm Abnormal T, consider ischemia, lateral leads Compared to ECG 10/07/2019 13:01:41 T-wave abnormality now present Possible ischemia now present Atrial abnormality no longer present Left ventricular hypertrophy no longer present Early repolarization no longer present Electronically Signed On 10-08-2019 14:21:07 CDT by Blaine Lemus [email or web address] <ELECTRONICALLY SIGNED> By: Jono Lemus MD, [facility] 10/08/19 1421 0537 0537 Jono Lemus MD, [facility] /EPI
--- NOTE | 2019-10-08 14:49 | NUR ---
ASSUMED PT CARE AT 0800, AOX4, UP AD DONAT, O2 SAT 90'S RA. TRACING SR ON TELE. DENIES PAIN, VSS, AM ASSESSMENT CHARTED, MEDS GIVEN PER MAR, CALL LIGHT WITHIN REACH, WILL CONTINUE TO MONITOR.
[2019-10-08 16:00] VITALS: BP 140/50
[2019-10-08 20:00] VITALS: BP 114/70
[2019-10-09] VITALS: BP 126/69
[2019-10-09 04:00] VITALS: BP 137/76
[2019-10-09 04:38] LABS: ABSOLUTE BASOPHILS 0.1 thou/uL (0.0-0.2); ABSOLUTE EOSINOPHILS 0.3 thou/uL (0.0-0.7); ABSOLUTE LYMPHOCYTES 1.3 thou/uL (0.8-5.3); ABSOLUTE MONOCYTES 1.1 thou/uL (0.0-1.2); ABSOLUTE NEUTROPHILS 9.1 thou/uL (1.6-8.1); BASOPHILS 0.5 %; EOSINOPHILS 2.5 %; HEMATOCRIT 32.4 % (42.0-52.0); HEMOGLOBIN 10.7 gm/dL (14.0-18.0); MCH 28.7 pg (26.0-34.0); MCHC 33.2 g/dL (28.0-37.0); MCV 86.6 fL (80.0-100.0); MONOCYTES 9.5 %; MPV 10.4 fl. (7.2-11.1); NUCLEATED RBCS 0 /100WBC; PLATELET COUNT* 178 thou/uL (150-400); POLYS 76.5 %; RBC 3.74 mil/uL (4.50-6.00); RDW-CV 14.6 % (10.5-14.5); WBC 11.9 thou/uL (4.0-11.0)
[2019-10-09 04:57] LABS: CALCIUM 7.9 mg/dL (8.5-10.1); CREATININE 2.4 mg/dL (0.6-1.3); TOTAL BILIRUBIN 0.4 mg/dL (<0.1-1.0); TOTAL PROTEIN 6.5 g/dL (6.4-8.2)
--- NOTE | 2019-10-09 06:59 | NUR ---
PT RESTED [facility] THE NIGHT WITHOUT INCIDENT. NO REPORTS OF PAIN OR DISCOMFORT. CALL LIGHT IN REACH. HOURLY ROUNDING FOR SAFETY.
[2019-10-09 08:00] VITALS: BP 154/76
[2019-10-09 12:00] VITALS: BP 121/57
[2019-10-09 16:00] VITALS: BP 128/65
--- NOTE | 2019-10-09 16:03 | NUR ---
ASSUMED PT CARE REPORT RECEIVED FROM NURSE PT IS AOX4. ON RA. TRACING SR ON FAST BRIM POUNCER. UP AD DONTA. R IJ PATENT. ACCUCHECK. NO COMPLAINT. WILL CONTINUE TO MONITOR PT
--- NOTE | 2019-10-09 16:41 | NUR ---
AT 0950 PT DISPLAYED SOME FALSE VTACH RYTHM ON AUTOMATION DEVELOPER. ARTIFACTS RYTHM NOTED WHILE PT WAS IN MOVEMENT IN ROOM AT THAT TIME. CARDIAC STRIPS PRINTED AND PLACED IN CHART.
[2019-10-09 19:22] VITALS: BP 155/67
[2019-10-10] VITALS: BP 140/64
--- NOTE | 2019-10-10 03:57 | NUR ---
ASSUMED CARE OF PT 10/09/19 AT APPROX 1930. PT A&OX4, ON ROOM AIR, VSS, CARDIAC RHYTHM - SINUS RHYTHM, PT UP AD DONTA. ASSESSMENTS AND HOURLY ROUNDINGS COMPLETED. WILL CONTINUE TO MONITOR.
[2019-10-10 04:03] LABS: HEMATOCRIT 31.9 % (42.0-52.0); HEMOGLOBIN 10.4 gm/dL (14.0-18.0); MCH 28.3 pg (26.0-34.0); MCHC 32.7 g/dL (28.0-37.0); MCV 86.6 fL (80.0-100.0); MPV 10.1 fl. (7.2-11.1); RBC 3.69 mil/uL (4.50-6.00); RDW-CV 14.4 % (10.5-14.5); WBC 12.6 thou/uL (4.0-11.0)
[2019-10-10 04:15] VITALS: BP 152/69
[2019-10-10 04:19] LABS: ALBUMIN 2.9 g/dL (3.4-5.0); CALCIUM 7.8 mg/dL (8.5-10.1); CREATININE 2.3 mg/dL (0.6-1.3); POTASSIUM 3.9 mmol/L (3.5-5.1)
[2019-10-10 08:00] VITALS: BP 143/67
--- NOTE | 2019-10-10 10:15 | NUR ---
MYLA spoke with Radha, cardiology nurse, Pt needs to transfer to [facility] for ICD, CM updated hospitalist, contacted [facility] transfer team and faxed referral. Ambulance form and EMTALA form initiated. Awaiting decision to accept.
[2019-10-10 13:26] VITALS: BP 131/53
--- NOTE | 2019-10-10 14:42 | NUR ---
Pt discharging to [facility] today, under the care of Dr Lawrence Graves. Pt will admit to room 4047. Nurse report number provided. EMTALA form initiated, nurse to complete. Ambulance to machine pecan picker and transport at 430pm. Updated Pt's .
--- NOTE | 2019-10-10 16:51 | NUR ---
PT VSS, A&OX4, NSR ON TELE, PATIENT AWAITING TRANSFER TO [facility] FOR ICD PLACEMENT. HOURLY ROUNDING PERFORMED, POSSESSIONS AND CALL LIGHT WITHIN REACH. TRANSFER CONFIRMED, FORM SIGNED BY RN AND PATIENT, DR SIGNED V.O.. IJ AND TELE MONITOR REMOVED, PERIPHERAL IV LEFT IN PLACE AT REQUEST OF [facility]. REPORT GIVEN TO MAGDY OLIVEIRA. EMS PICKED UP PATIENT AND TOOK PACKET. CD OF CARDIAC IMAGES GIVEN TO PATIENT TO GIVE PHYSICIAN AT [facility] PER DR. ANALILIA JIMENEZ PATIENT GIVE TO [facility] DOCTOR ONLY
== END 2019-10-10 16:30 | DRG 246 ==
LOC: M.ERS 13:35 → M.ICU 14:38 → M.TBA-ER 14:38 → M.ICU 15:50 → M.2W 10-02 19:11
PROVIDERS: Family Medicine; Internal Medicine; Internal Medicine Nephrology; Internal Medicine Pulmonary Disease; Registered Nurse; ADMIT Internal Medicine
PROC: 4A023N7 Measurement of Cardiac Sampling and Pressure, Left Heart, Percutaneous Approach (ICD-10-PCS; principal; 2019-09-29)
PROC: B211YZZ Fluoroscopy of Multiple Coronary Arteries using Other Contrast (ICD-10-PCS; principal; 2019-09-29)
PROC: 0BH17EZ Insertion of Endotracheal Airway into Trachea, Via Natural or Artificial Opening (ICD-10-PCS; principal; 2019-09-29)
PROC: 5A1935Z Respiratory Ventilation, Less than 24 Consecutive Hours (ICD-10-PCS; 2019-09-29)
PROC: 02HV33Z Insertion of Infusion Device into Superior Vena Cava, Percutaneous Approach (ICD-10-PCS; 2019-09-29)
PROC: 027034Z Dilation of Coronary Artery, One Artery with Drug-eluting Intraluminal Device, Percutaneous Approach (ICD-10-PCS; 2019-09-29)
PROC: 5A1935Z Respiratory Ventilation, Less than 24 Consecutive Hours (ICD-10-PCS; 2019-10-01)
DX: I46.9 Cardiac arrest, cause unspecified (principal); I21.3 ST elevation (STEMI) myocardial infarction of unspecified site; I50.41 Acute combined systolic (congestive) and diastolic (congestive) heart failure; J96.01 Acute respiratory failure with hypoxia; J96.02 Acute respiratory failure with hypercapnia; N17.0 Acute kidney failure with tubular necrosis; G93.40 Encephalopathy, unspecified; R65.10 Systemic inflammatory response syndrome (SIRS) of non-infectious origin without acute organ dysfunction; R57.9 Shock, unspecified; E87.4 Mixed disorder of acid-base balance; I13.0 Hypertensive heart and chronic kidney disease with heart failure and stage 1 through stage 4 chronic kidney disease, or unspecified chronic kidney disease; I49.01 Ventricular fibrillation; Z79.82 Long term (current) use of aspirin; I25.10 Atherosclerotic heart disease of native coronary artery without angina pectoris; E66.9 Obesity, unspecified; E87.6 Hypokalemia; E11.65 Type 2 diabetes mellitus with hyperglycemia; K75.89 Other specified inflammatory liver diseases; T68.XXXA Hypothermia, initial encounter; E78.5 Hyperlipidemia, unspecified; E83.42 Hypomagnesemia; E87.5 Hyperkalemia; I25.5 Ischemic cardiomyopathy; E11.22 Type 2 diabetes mellitus with diabetic chronic kidney disease; N18.3 Chronic kidney disease, stage 3 (moderate); Z95.1 Presence of aortocoronary bypass graft; Z68.32 Body mass index [BMI] 32.0-32.9, adult; Z79.899 Other long term (current) drug therapy; Z79.84 Long term (current) use of oral hypoglycemic drugs

== ENCOUNTER → 2021-02-06 | Outpatient (CLI) | payer OTHER | LOC: M.MRI 14:30 | PROVIDERS: ATTEND Family Medicine | DX: S83.242A Other tear of medial meniscus, current injury, left knee, initial encounter (principal); M25.562 Pain in left knee; G89.29 Other chronic pain; X58.XXXA Exposure to other specified factors, initial encounter; Y93.89 Activity, other specified; Y92.89 Other specified places as the place of occurrence of the external cause; Y99.8 Other external cause status ==

== ENCOUNTER → 2021-03-05 | Outpatient (CLI) | payer OTHER ==
[~2021-03-05] MED LIST changes: +COZAAR 25 MG TA25 M1 PO; +JARDIANCE10 MG PO; +LOPRESSOR100 M1 PO; +METFORMIN HCL500 M3 PO; +PLAVIX 75 MG TA75 MG PO; +TRULICITY0.75 MG/0. SUBQ
== END ==
LOC: M.LAB 13:36
PROVIDERS: ATTEND Orthopaedic Surgery
DX: Z20.822 Contact with and (suspected) exposure to COVID-19 (principal)

== ENCOUNTER → 2021-03-06 | Day surgery (SDC) | payer OTHER ==
--- NOTE | ~2021-03-06 | OP ---
[address] [address] OPERATIVE REPORT Name: KAIDEN YANES Room: [facility]#: [id number] Admission: 03/06/21 Attend Phys: Efren Baron II Discharge: Date of : 52 Report #: [id number] THIS REPORT FOR: cc: Maryjane Olsen Maggie M. DO Greiner, Robert F. II DO ~ DATE OF SURGERY: 03/06/2021 PREOPERATIVE DIAGNOSIS: Left knee medial meniscus tear. POSTOPERATIVE DIAGNOSIS: Left knee medial meniscus tear and grade 3 chondromalacia of patellofemoral groove. PROCEDURE PERFORMED: Left knee arthroscopic surgery with partial medial meniscectomy and abrasion chondroplasty of patellofemoral groove down to bleeding bone. SURGEON: Efren Baron II, DO. TRACK REPAIR LABORER: : MUNA Bill. ANESTHESIA: Per operative record. ESTIMATED BLOOD LOSS: Minimal. ANTIBIOTICS: Per operative record.. DRAINS: None. COMPLICATIONS: None. CONDITION: Stable to recovery room. DESCRIPTION OF PROCEDURE: The patient was taken to the operative suite and placed supine on the operating table and given appropriate anesthesia. The patient's left lower extremity was sterilely prepped and draped with a well-padded arthroscopic louise. Surgery began on the medial and lateral portal incisions. The arthroscope was advanced in the joint. There was a grade 3 chondromalacia of the patellofemoral groove. Utilizing a shaver, an abrasion chondroplasty was performed down to bleeding bone and then smoothed with Coblation wand. Medial meniscus was shown to have a tear at the medial meniscus around to the medial aspect of the joint with a flipped fragment. A partial medial meniscectomy was performed utilizing baskets and shaver to resect the torn flap along the medial meniscus and then smoothed with Coblation wand. Lateral meniscus was probed and shown to be intact. ACL and PCL were intact. Final irrigation was then performed. The knee was drained of arthroscopic fluid, closed with 4-0 nylon in sterile fashion. [place] [address] OPERATIVE REPORT Name: KAIDEN YANES Room: [facility]#: [id number] Admission: 03/06/21 Attend Phys: Efren Baron II Discharge: Date of : 52 Report #: [id number] The patient transported to recovery in stable condition. Counts were correct throughout the procedure. By: [id number] Baron II, DO /nt
[2021-03-06 10:05] LABS: HEMATOCRIT 39.7 % (42.0-52.0); HEMOGLOBIN 12.7 gm/dL (14.0-18.0); MCH 27.5 pg (26.0-34.0); MCHC 32.1 g/dL (28.0-37.0); MCV 85.7 fL (80.0-100.0); MPV 8.2 fl. (7.2-11.1); RBC 4.63 mil/uL (4.50-6.00); RDW-CV 15.4 % (10.5-14.5); WBC 6.4 thou/uL (4.0-11.0)
--- NOTE | 2021-03-06 10:24 | EKG ---
[place] [address] ELECTROCARDIOGRAM REPORT Name: KAIDEN YANES Room: [facility]#: [id number] Admission: 03/06/21 Attend Phys: Efren Baron, Discharge: Date of : 52 Date of Service: 03/06/21921 Report #: [id number] THIS REPORT FOR: //name// [facility] ED Test Date: 2021-03-06 Test Time: 09:22:07 Pat Name: KAIDEN YANES Department: Room: Gender: Foreign Collection Clerk: [place] : 1950 Requested By: Efren Baron Order Number: [id number] Daija MD: Mitul Hollingsworth Measurements Intervals [place] Rate: 63 P: -24 MT: 194 QRS: -7 QRSD: 102 T: 148 QT: 418 QTc: 428 Interpretive Statements Sinus rhythm Probable LVH with secondary repol abnrm Compared to ECG 10/08/2019 05:37:51 no change Electronically Signed On 03-06-2021 10:24:48 CDT by Mitul Hollingsworth [email or web address] <ELECTRONICALLY SIGNED> By: Mitul Hollingsworth MD, FACC 03/06/21 1024 1 1 Mitul Hollingsworth MD, [facility] /EPI
[2021-03-06 10:38] LABS: CALCIUM 8.5 mg/dL (8.5-10.1); CREATININE 1.6 mg/dL (0.6-1.3); POTASSIUM 4.5 mmol/L (3.5-5.1)
== END | disposition home or self-care (01) ==
LOC: M.SUR 05:49
PROVIDERS: ATTEND Orthopaedic Surgery
DX: S83.242A Other tear of medial meniscus, current injury, left knee, initial encounter (principal); M22.42 Chondromalacia patellae, left knee; N18.9 Chronic kidney disease, unspecified; I25.10 Atherosclerotic heart disease of native coronary artery without angina pectoris; Z98.890 Other specified postprocedural states; Z79.899 Other long term (current) drug therapy; Z79.82 Long term (current) use of aspirin; X58.XXXA Exposure to other specified factors, initial encounter; Y93.89 Activity, other specified; Y92.89 Other specified places as the place of occurrence of the external cause; Y99.8 Other external cause status

== ENCOUNTER → 2021-09-10 | Outpatient (CLI) | payer OTHER | LOC: M.ULTRA 10:25 | PROVIDERS: ATTEND Internal Medicine Nephrology | DX: N28.1 Cyst of kidney, acquired (principal); N18.32 Chronic kidney disease, stage 3b ==